=== PATIENT | male | born 1985 | race Two or more races ===

== ENCOUNTER 2018-07-09 10:43 | Emergency (ER) | payer OTHER ==
[~2018-07-09] VITALS: Ht 165.1 cm; Wt 70.8 kg
[2018-07-09 10:48] VITALS: BP 120/57
[2018-07-09] MEDS ORDERED: BUTORPHANOL 2 MG/ML VIAL. IV ONE (11:45)
[2018-07-09] MEDS ORDERED: KETOROLAC 30 MG/ML VIAL. IV ONE (11:45)
[2018-07-09] MEDS ORDERED: ORPHENADRINE CITRATE 60 MG/2 ML VIAL. IV ONE (11:45)
--- NOTE | 2018-07-09 13:06 | PHYS DOC ---
Past Medical History Past Medical History: No Pertinent History Past Surgical History: Cholecystectomy, Other Additional Past Surgical Histo: L ankle frx repair with hardware Alcohol Use: None Drug Use: None Adult General Chief Complaint Chief Complaint: BACK PAIN - NO INJURY [facility] HPI Patient is a 32-year-old male who presents with complaint of midthoracic back pain that started yesterday. Patient indicates that he is in [employer] and states that he has been doing a lot of training recently and also indicates that he has been thrown to the ground a few times. He states that his back was feeling fairly tight last night and again this morning. 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 He denies any loss of bowel or bladder function. He states that pain is worsened with movement and with deep breathing. He rates pain at an 8 out of 10. He denies any nausea or vomiting. Review of Systems Review of Systems Constitutional: Denies fever or chills [] Respiratory: Denies cough or shortness of breath [] Cardiovascular: No additional information not addressed in HPI [] GI: Denies abdominal pain, nausea, vomiting or diarrhea [] Musculoskeletal: Complains of midthoracic back pain [] Integument: Denies rash or skin lesions [] Neurologic: Denies headache, focal weakness or sensory changes [] All other systems were reviewed and found to be within normal limits, except as documented in this note. Current Medications Current Medications Current Medications Medications (Trade) Dose Ordered Sig/[facility] Start Time Stop Time Status Last Admin Dose Admin Butorphanol Tartrate (Stadol) 1 mg 1X ONCE 07/09/18 11:45 07/09/18 11:46 DC 07/09/18 12:21 1 MG Ketorolac Tromethamine (Toradol 30mg Vial) 30 mg 1X ONCE 07/09/18 11:45 07/09/18 11:46 DC 07/09/18 12:27 30 MG Orphenadrine Citrate (Norflex) 60 mg 1X ONCE 07/09/18 11:45 07/09/18 11:46 DC 07/09/18 12:27 60 MG Allergies Allergies Allergies Coded Allergies Type Severity Reaction Last Updated Verified No Known Drug Allergies 07/09/18 No Physical Exam Physical Exam Constitutional: Well developed, well nourished, no acute distress, non-toxic appearance. [] HENT: Normocephalic, atraumatic, bilateral external ears normal, oropharynx moist, no oral exudates, nose normal. [] Eyes: PERRLA, EOMI, conjunctiva normal, no discharge. [] Neck: Normal range of motion, no tenderness, supple, no stridor. [] Cardiovascular: Regular rate and rhythm no murmur [] Lungs & Thorax: Bilateral breath sounds clear to auscultation [] Abdomen: Bowel sounds normal, soft, no tenderness. [] Skin: Warm, dry, no erythema, no rash. [] Back: There is moderate tenderness to palpation with palpable spasm most notably at the mid thoracic region on the right. [] Extremities: No tenderness, no cyanosis, no clubbing, ROM intact, no edema. [] Neurologic: Alert and oriented X 3, normal motor function, normal sensory function, no focal deficits noted. [] Current Patient Data Vital Signs Vital Signs Date Time Temp Pulse Resp B/P (MAP) Pulse Ox O2 Delivery O2 Flow Rate FiO2 07/09/18 12:21 16 99 Room Air 07/09/18 10:48 97.6 53 120/57 (78) 97.6 EKG EKG [] Radiology/Procedures Radiology/Procedures [] Impressions: THORACIC SPINE 3V History: mid back pain after hanging a mirror this morning.
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 Comparison: None are available Mild marginal degenerative spurring. The upper thoracic vertebrae are not well seen on the lateral view. Vertebral body height appears maintained, particularly as seen on the frontal view. No significant subluxation. Visualized lungs and paraspinal soft tissues appear grossly unremarkable. IMPRESSION: No acute radiographic findings. Course & Med Decision Making Course & Med Decision Making Pertinent Labs and Imaging studies reviewed. (See chart for details) [] Dragon Disclaimer Dragon Disclaimer This electronic medical record was generated, in whole or in part, using a voice recognition dictation system. Departure Departure Impression: Primary Impression: Acute thoracic myofascial strain Disposition: 01 HOME, SELF-CARE Condition: STABLE Referrals: TJ SALMON MD (PCP) Patient Instructions: Thoracic Strain Scripts Diclofenac Sodium (DICLOFENAC SODIUM) 50 Mg Tablet.dr 1 TAB PO BID PRN for PAIN, #20 TAB Prov: CARLOS HORTON Jr. DO 07/09/18 Orphenadrine Citrate (ORPHENADRINE CITRATE) 100 Mg Tablet.er 1 TAB PO BID PRN for MUSCLE SPASMS, #20 TAB Prov: CARLOS HORTON Jr. DO 07/09/18 Hydrocodone/Apap 5-325 (NORCO 5-325 TABLET) 1 Each Tablet 1 EACH PO PRN Q6HRS PRN for PAIN, #15 as needed for pain Prov: CARLOS HORTON Jr. DO 07/09/18 Problem Qualifiers Primary Impression: Acute thoracic myofascial strain Encounter type: initial encounter Qualified Codes: S29.019A - Strain of muscle and tendon of unspecified wall of thorax, initial encounter CARLOS HORTON Jr. DO Jul 09, 2018 13:05
--- NOTE | 2018-07-09 13:34 | RAD ---
THORACIC SPINE 3V History: mid back pain after hanging a mirror this morning.
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 Comparison: None are available Mild marginal degenerative spurring. The upper thoracic vertebrae are not well seen on the lateral view. Vertebral body height appears maintained, particularly as seen on the frontal view. No significant subluxation. Visualized lungs and paraspinal soft tissues appear grossly unremarkable. IMPRESSION: No acute radiographic findings. Electronically signed by: Hwak Irene MD (07/09/2018 1:30 PM) [id number]
[2018-07-09] MEDS ORDERED: ORPH100T PO (13:57)
[2018-07-09] MEDS ORDERED: HYDR-3164 PO (13:57)
[2018-07-09] MEDS ORDERED: DICL50TA4 PO (13:57)
== END 2018-07-09 15:26 | disposition home or self-care (01) ==
LOC: ER 10:43
DX: S29.019A Strain of muscle and tendon of unspecified wall of thorax, initial encounter (principal); Z90.49 Acquired absence of other specified parts of digestive tract; Y04.0XXA Assault by unarmed brawl or fight, initial encounter; Y93.75 Activity, martial arts; Y92.89 Other specified places as the place of occurrence of the external cause; Y99.8 Other external cause status
CPT/HCPCS: 72072; 96374; 96375; 99283; J1885; J2360